=== PATIENT | female | born 1980 | race Caucasian/White ===

== ENCOUNTER 2017-08-26 22:32 | Emergency (ER) | payer MEDICAID, OTHER ==
[~2017-08-26] VITALS: Ht 154.9 cm; Wt 54.5 kg
[2017-08-26 22:47] VITALS: Ht 154.9 cm; Wt 54.5 kg
[2017-08-26] MEDS ORDERED: CYCL-319 PO (23:15)
[2017-08-26] MEDS ORDERED: IBUP-1542 PO (23:15)
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
== END 2017-08-27 00:12 | disposition home or self-care (01) ==
LOC: FTE 22:32
DX: R07.89 Other chest pain (principal); M54.9 Dorsalgia, unspecified
CPT/HCPCS: 99283

== ENCOUNTER 2018-03-25 01:07 | Emergency (ER) | END 2018-03-25 05:09 | disposition home or self-care (01) ==

== ENCOUNTER 2018-03-27 21:46 | Emergency (ER) | END 2018-03-28 01:40 | disposition home or self-care (01) ==